=== PATIENT | male | born 1950 | race Caucasian/White ===

== ENCOUNTER 2018-04-09 08:30 | Outpatient (RCR) | payer MEDICARE, OTHER, SELFPAY | END 2018-04-09 09:30 | LOC: CAR 08:30 | PROVIDERS: PCP Family Medicine; Visit Provider Internal Medicine Cardiovascular Disease | DX: Z95.5 Presence of coronary angioplasty implant and graft (principal) | CPT/HCPCS: 93798 ==

== ENCOUNTER → 2018-08-20 11:54 | Outpatient (CLI) | payer MEDICARE, OTHER, SELFPAY ==
[2018-08-20 13:11] LABS: Cholesterol 147 mg/dL (140-199); HDL Cholesterol 53 mg/dL (40-60); LDL Cholesterol Calculated 77 mg/dL (<100); Triglycerides 85 mg/dL (35-150)
== END ==
PROVIDERS: PCP Family Medicine; Visit Provider Internal Medicine Cardiovascular Disease
DX: I25.10 Atherosclerotic heart disease of native coronary artery without angina pectoris (principal)
CPT/HCPCS: 36415; 80061

== ENCOUNTER → 2019-07-26 07:10 | Outpatient (CLI) | payer MEDICARE, OTHER, SELFPAY ==
[2019-07-26 09:10] LABS: Cholesterol 131 mg/dL (140-199); HDL Cholesterol 42 mg/dL (40-60); LDL Cholesterol Calculated 73 mg/dL (<100); Triglycerides 78 mg/dL (35-150)
== END ==
PROVIDERS: PCP Family Medicine; Visit Provider Registered Nurse
DX: I25.10 Atherosclerotic heart disease of native coronary artery without angina pectoris (principal)
CPT/HCPCS: 36415; 80061

== ENCOUNTER → 2019-10-21 12:38 | Outpatient (CLI) | payer MEDICARE, OTHER, SELFPAY ==
--- NOTE | 2019-10-21 | DI.MRI.S_ITS ---
PROCEDURE: MR HIP RT WO CON INDICATIONS: WEAKNESS AND BILATERAL HIP PAIN TECHNIQUE: Noncontrast coronal T1 spin echo and STIR through the bony pelvis. Coronal and axial T2 fast spin echo with fat saturation, sagittal T1 spin echo, and oblique axial T2 fast spin echo with fat saturation through the hip. COMPARISON: None. FINDINGS: Image quality: Excellent. Bones and joints: Mild to moderate right hip joint osteoarthritic changes are seen with joint space narrowing and subchondral sclerosis. No intraosseous lesions or fractures. No avascular necrosis of the femoral heads. The visualized lower lumbar spine appears normally aligned. Tendons and ligaments: Tendinosis involving distal right gluteus medius and minimus tendons at their insertion greater trochanter is seen without associated muscle atrophy. The nearby proximal iliotibial band also appears intact. The iliopsoas tendon appears intact, without adjacent bursal fluid collections or evidence for impingement syndrome. The origin of the hamstring tendon is intact at the ischial tuberosity, as well as the associated sacrotuberous ligament. The straight and reflected heads of the rectus femoris muscle origin appear intact, as well as the conjoint tendon. The ligamentum teres appears intact where visualized. Labrum and cartilage: There is suggestion of subtle superior anterior right hip labral tear in the absence of intra-articular contrast. Diffuse thinning of the articulating cartilages along surface of femoral head is seen. The alpha angle of the femur is within normal limits at less than 55 degrees. Soft tissues: Visualized muscles demonstrate normal bulk and internal signal. Quadratus femoris muscle demonstrates no internal edema to suggest ischiofemoral impingement. The proximal sciatic neurovascular bundle appears normal adjacent to the hamstring tendons. No free pelvic fluid. Bladder wall thickness is normal. Genitourinary structures and bowel loops appear normal where visualized. IMPRESSION: 1. Mild to moderate right hip joint osteoarthritis. No fracture or dislocation. No evidence of avascular necrosis of femoral head. 2. Findings suggestive of superior anterior right hip labral tear in the absence of intra-articular contrast. 3. Tendinosis involving distal right gluteus medius and minimus tendons at their insertion on greater trochanter. Dictated by: Xavier Sexton M.D. on 10/21/2019 at 15:04 Approved by: Xavier Sexton M.D. on 10/21/2019 at 15:11
--- NOTE | 2019-10-21 | DI.MRI.S_ITS ---
PROCEDURE: MR LUMBAR SPINE WO CON INDICATIONS: WEAKNESS AND BILATERAL HIP PAIN TECHNIQUE: Noncontrast sagittal T1 spin echo and T2 fast echo, sagittal STIR, axial T1 and T2 fast spin echo through the lumbar spine. In cases with scoliosis, additional coronal T2 fast spin echo may be performed. COMPARISON: None. FINDINGS: Image quality: Excellent. Alignment and Curvature: There is normal bony alignment. Bone Marrow: Marrow is of normal overall signal. No acute vertebral body compression fractures. Spinal Cord: Conus medullaris terminates at the T12-L1 level. Visualized cord demonstrates normal signal and size. Paraspinous Soft Tissues: No paravertebral masses. L1-L2: Decreased intervertebral disc space and degenerative endplate changes are seen. There is mild diffuse disc bulge and bilateral facet arthrosis. Mild central canal stenosis is seen, no significant neuroforaminal narrowing. L2-L3: Decreased intervertebral disc space and degenerative endplate changes are noted. A broad-based disc bulge and bilateral facet arthrosis is seen with mild to moderate central canal stenosis and mild left-sided neuroforaminal narrowing. L3-L4: Decreased intervertebral disc space and degenerative endplate changes are seen. There is broad-based disc bulge and bilateral facet arthrosis with hypertrophy of ligamentum flavum. Moderate central canal stenosis is seen. Moderate bilateral neuroforaminal narrowing is also noted. There is likely compression of bilateral exiting L3 nerve roots. L4-L5: Broad-based disc bulge and bilateral facet arthrosis is seen with hypertrophy of ligamentum flavum. There is moderate to severe central canal stenosis and bilateral neuroforaminal narrowing. Bulging disc likely contacting the bilateral exiting L4 nerve roots. L5-S1: Decreased intervertebral disc space and degenerative endplate changes are noted with diffuse disc bulge and bilateral facet arthrosis. There is mild central canal stenosis and mild to moderate bilateral neuroforaminal narrowing. IMPRESSION: 1. Degenerative disc bulge and bilateral facet arthrosis with hypertrophy of ligamenta flava and throughout lumbar spine with mild to moderate central canal stenosis and bilateral neuroforaminal narrowing more prominent at L3-4 and L4-5 levels as described in detail above. 2. There is no marrow edema. No acute compression fracture or spondylolisthesis. Dictated by: Xavier Sexton M.D. on 10/21/2019 at 14:59 Approved by: Xavier Sexton M.D. on 10/21/2019 at 15:04
--- NOTE | 2019-10-21 | DI.MRI.S_ITS ---
PROCEDURE: MR HIP LT WO CON INDICATIONS: WEAKNESS AND BILATERAL HIP PAIN TECHNIQUE: Noncontrast coronal T1 spin echo and STIR through the bony pelvis. Coronal and axial T2 fast spin echo with fat saturation, sagittal T1 spin echo, and oblique axial T2 fast spin echo with fat saturation through the hip. COMPARISON: [facility], MR, MR HIP RT WO CON, 10/21/2019, 13:23. FINDINGS: Image quality: Excellent. Bones and joints: Moderate left hip joint osteoarthritic changes are seen with joint space narrowing, extensive subchondral edema and cyst formation in left acetabular roof. No marrow edema. No intraosseous lesions or fractures. No avascular necrosis of the femoral heads. The visualized lower lumbar spine appears normally aligned. Tendons and ligaments: Mild tendinosis and low-grade partial-thickness tear involving left distal gluteus medius and minimus tendons at the insertion of greater trochanter., without associated muscle atrophy. The nearby proximal iliotibial band also appears intact. The iliopsoas tendon appears intact, without adjacent bursal fluid collections or evidence for impingement syndrome. The origin of the hamstring tendon is intact at the ischial tuberosity, as well as the associated sacrotuberous ligament. The straight and reflected heads of the rectus femoris muscle origin appear intact, as well as the conjoint tendon. The ligamentum teres appears intact where visualized. Labrum and cartilage: There is suggestion of extensive left hip superior and labral tear in the absence of intra-articular contrast. Diffuse thinning of articulating cartilage is along surface of femoral head is seen.. The alpha angle of the femur is within normal limits at less than 55 degrees. Soft tissues: Visualized muscles demonstrate normal bulk and internal signal. Quadratus femoris muscle demonstrates no internal edema to suggest ischiofemoral impingement. The proximal sciatic neurovascular bundle appears normal adjacent to the hamstring tendons. No free pelvic fluid. Bladder wall thickness is normal. Genitourinary structures and bowel loops appear normal where visualized. IMPRESSION: 1. Moderate left worse than right bilateral hip joint osteoarthritis. No fracture or dislocation. No evidence of avascular necrosis. 2. Tendinosis and low-grade partial-thickness tear involving left distal gluteus medius and minimus tendons at their insertion on greater trochanter. 3. Suggestion of extensive left hip superior and anterior labral tear. Dictated by: Xavier Sexton M.D. on 10/21/2019 at 15:11 Approved by: Xavier Sexton M.D. on 10/21/2019 at 15:16
== END ==
PROVIDERS: PCP Family Medicine; Visit Provider Family Medicine
DX: M25.552 Pain in left hip (principal); M25.551 Pain in right hip; R53.1 Weakness; M51.36 Other intervertebral disc degeneration, lumbar region; M51.37 Other intervertebral disc degeneration, lumbosacral region; M47.816 Spondylosis without myelopathy or radiculopathy, lumbar region; M47.817 Spondylosis without myelopathy or radiculopathy, lumbosacral region; M48.061 Spinal stenosis, lumbar region without neurogenic claudication; M48.07 Spinal stenosis, lumbosacral region; M16.0 Bilateral primary osteoarthritis of hip; M67.88 Other specified disorders of synovium and tendon, other site
CPT/HCPCS: 72148; 73721

== ENCOUNTER → 2019-11-30 12:10 | Outpatient (CLI) | payer MEDICARE, OTHER, SELFPAY ==
--- NOTE | 2019-11-30 | DI.RAD.S_ITS ---
PROCEDURE: XR KNEE RT 3V INDICATIONS: RIGHT KNEE PAIN TECHNIQUE: 3 views of the knee were acquired. COMPARISON: None. FINDINGS: Bones: No fractures or dislocations. No suspicious bony lesions. Mild degenerative joint disease with small periarticular osteophytes. Soft tissues: No joint effusion. There is an irregular ossicle in the inferior knee, either secondary to ossification of the patellar tendon or an intra-articular body. IMPRESSION: 1. Mild degenerative joint disease. 2. An irregular ossicle in the inferior knee, either secondary to ossification of the patellar tendon or an intra-articular body. Dictated by: Margareth Melendez M.D. on 11/30/2019 at 14:15 Approved by: Margareth Melendez M.D. on 11/30/2019 at 14:19
== END ==
PROVIDERS: PCP Family Medicine; Visit Provider Family Medicine
DX: M25.561 Pain in right knee (principal); M17.11 Unilateral primary osteoarthritis, right knee
CPT/HCPCS: 73562

== ENCOUNTER → 2021-02-21 12:20 | Outpatient (CLI) | payer MEDICARE, OTHER, SELFPAY ==
--- NOTE | 2021-02-21 12:24 | DI.RAD.S_ITS ---
PROCEDURE: XR CHEST 2V INDICATIONS: cough TECHNIQUE: 2 views of the chest were acquired. COMPARISON: [facility], CHEST 1 VIEW, 06/25/2017, 10:19. [facility], CHEST 2 VIEW, 04/18/2017, 14:06. FINDINGS: Surgical changes and devices: None. Lungs and pleura: Lungs are clear. No pleural effusions or pneumothorax. Mediastinum: Mediastinal contours are normal. Heart size is normal. Bones and chest wall: No suspicious bony abnormalities. Soft tissues appear unremarkable. IMPRESSION: Normal for age, source of current cough symptoms is not seen. Dictated by: Brian Newman M.D. on 02/21/2021 at 12:43 Approved by: Brian Newman M.D. on 02/21/2021 at 12:43
[2021-02-21 12:54] LABS: Troponin I < 0.012 ng/mL (0.01-0.034)
== END ==
PROVIDERS: PCP Family Medicine; Referring Provider Student in an Organized Health Care Education/Training Program; Visit Provider Student in an Organized Health Care Education/Training Program
DX: R05 Cough (principal)
CPT/HCPCS: 71046; 84484

== ENCOUNTER → 2021-03-13 10:51 | Outpatient (CLI) | payer MEDICARE, OTHER, SELFPAY ==
[2021-03-13 12:01] LABS: COVID19 -Nasal RAPID Negative (Negative)
== END ==
PROVIDERS: PCP Family Medicine; Referring Provider Internal Medicine; Visit Provider Internal Medicine
DX: Z20.822 Contact with and (suspected) exposure to COVID-19 (principal)
CPT/HCPCS: 87635; C9803

== ENCOUNTER → 2021-03-14 11:00 | Outpatient (CLI) | payer MEDICARE, OTHER, SELFPAY ==
--- NOTE | 2021-03-15 16:18 | PM.PFT.1 ---
Pulmonary Function Test Referral & Results Date Patient Seen: 03/14/21 Requesting provider: Sammy Bell Results: The spirometry demonstrates an FVC of 3.68 L which is 84% of predicted. The FEV1 was measured at 2.90 L which is 91% of predicted. The FEV1/FVC ratio was 79 which is 107% of predicted. Following the administration of bronchodilator there was an 18% improvement in FEF 25-75%. Lung volumes show an SVC of 4.56 L which is 100% of predicted. The diffusing capacity was measured at 19.87 which is 61% of predicted. No hemoglobin value was provided, so no correction for potential anemia could be made, if appropriate. The maximum voluntary ventilation was normal Interpretation: This study demonstrates probably normal spirometry although there is an improvement in small airway flow post bronchodilator based on the improved FEF 25-75% as above There is a mild reduction in diffusing capacity (unless patient is anemic) suggesting element of disease the capillary alveolar level Clinical correlation suggested
== END ==
PROVIDERS: PCP Family Medicine; Referring Provider Family Medicine; Visit Provider Family Medicine
DX: R07.89 Other chest pain (principal); R05 Cough
CPT/HCPCS: 94060; 94726; 94729

== ENCOUNTER 2024-07-31 22:12 | Emergency (ER) | payer MEDICARE, OTHER, SELFPAY ==
[2024-07-31] VITALS (7 sets, daily range): BP systolic 122–184; BP diastolic 60–82; PULSE 52–94; RESP 18–27; TEMP 36.7; O2SAT 95–98; BMI 25.8
--- NOTE | 2024-07-31 22:21 | DI.RAD.S_ITS ---
PROCEDURE: XR CHEST 1V INDICATIONS: Chest pain TECHNIQUE: One view of the chest was acquired. COMPARISON: [facility], CR, XR CHEST 2V, 02/21/2021, 12:26. FINDINGS: Surgical changes and devices: None. Lungs and pleura: There is mild pulmonary vascular congestion. No definite focal infiltrate.. No pleural effusions or pneumothorax. Mediastinum: Mediastinal contours appear normal. Heart size is normal. Bones and chest wall: No suspicious bony lesions. Overlying soft tissues appear unremarkable. IMPRESSION: Mild congestion. No definite focal infiltrate. No pleural effusion or pneumothorax. Dictated by: Xavier Sexton M.D. on 07/31/2024 at 22:52 Approved by: Xavier Sexton M.D. on 07/31/2024 at 22:53
--- NOTE | 2024-07-31 22:27 | EKG_ITS ---
[place] [address] [place] [id number] Test Date: 2024-07-31 Pat Name: Phil Alcaraz Department: [facility] Room: Gender: Male Oral Therapist: BAMBI : 1950 Requested By: Order Number: [id number] Reading MD: Heber Norwood Measurements Intervals [place] Rate: 90 P: 64 DC: 154 QRS: 23 QRSD: 86 T: 46 QT: 390 QTc: 477 Interpretive Statements Sinus rhythm with frequent premature ventricular complexes in a pattern of bigeminy Possible Left atrial enlargement Electronically Signed On 08-01-2024 7:17:26 PDT by Heber Norwood
[2024-07-31 22:44] LABS: Add Manual Diff / Slide Review NO; Basophils Absolute Auto 0 /uL (0-100); Basophils Percent Auto 0.8 % (0-2); Eosinophils Absolute Auto 100 /uL (0-450); Eosinophils Percent Auto 3.5 % (2-4); Hematocrit 35.6 % (41-53); Hemoglobin 12.2 g/dL (13.5-17.5); Lymphocytes Absolute Auto 1500 /uL (1100-4500); Mean Corpuscular HGB Conc 34.3 % (30-36); Mean Corpuscular Volume 99.1 fL (80-100); Monocytes Absolute Auto 200 /uL (0-900); Monocytes Percent Auto 7.4 % (3-14); Neutrophils Absolute Auto 1400 /uL (1500-7000); Neutrophils Percent Auto 42.3 % (50-75); Platelet Count 184 X10^3/uL (150-400); Red Blood Cell Count 3.59 X10^6/uL (4.5-5.9); Red Cell Distribution Width 12.2 % (11.6-14.8); White Blood Cell Count 3.2 X10^3/uL (4.5-11.0)
[2024-07-31 23:00] LABS: Alanine Aminotransferase 21 IU/L (<50); Albumin Globulin Ratio 1.3 (1.0-2.8); Alkaline Phosphatase 71 U/L (38-126); Aspartate Aminotransferase 23 IU/L (17-59); BUN Creatinine Ratio 47.8 (6-22); Bilirubin Total 1.5 mg/dL (0.2-1.3); Blood Urea Nitrogen 32 mg/dL (9-20); Calcium 9.4 mg/dL (8.4-10.2); Carbon Dioxide 24 mmol/L (22-32); Chloride 108 mmol/L (98-107); Creatine Kinase 102 U/L (55-170); Estimated Glomerular Filt Rate > 60 mL/min (>60); Globulin 3.2 g/dL (1.7-4.1); Glucose 126 mg/dL (80-110); HEMOLYSIS < 15 (0-50); Lipase 65 U/L (23-300); Sodium 138 mmol/L (137-145); Total Protein 7.2 g/dL (6.3-8.2)
[2024-07-31 23:01] LABS: Magnesium 1.9 mg/dL (1.6-2.3)
[2024-07-31 23:12] LABS: Troponin I < 0.012 ng/mL (0.01-0.034)
--- NOTE | 2024-07-31 23:41 | ED_ITS ---
HPI - Chest Pain General Chief Complaint: Chest Pain Stated Complaint: low heart rate, chest pain, t-3 Time Seen by Provider: 07/31/24 22:20 Source: patient Mode of arrival: Ambulatory Limitations: no limitations History of Present Illness HPI narrative: Patient is a 74-year-old male who presents emergency department this evening for a low heart rate and also chest discomfort. He states his chest discomfort has been present for the past several weeks. He states that it only occurs when he takes a deep breath. Initially thought that it was something muscular. It is not worse with palpation or movement. He denies any fevers. No cough. States the pain is not persistent but only when he takes a deep breath. He was not short of breath when he was walking around. He also states that his heart rate has been low. He was not on any blood pressure medications. Nothing that would bring his heart rate low. He states he had a medical appointment recently and was told that his heart rate was in the 40s. He was feeling at his baseline state of health. He happened to put on a pulse ox that he had at home which showed his heart rate again in the 40s. He was not been lightheaded with standing nor short of breath with exertion. Given the chest discomfort in the low heart rate decided to come to the emergency department for further evaluation. Related Data Home Medications Medication Instructions Recorded Confirmed aspirin 81 mg tablet,delayed 81 mg PO QDAY ##0 06/25/17 release atorvastatin 80 mg tablet (Lipitor) 80 mg PO HS ##0 06/25/17 clopidogrel 75 mg tablet (Plavix) 75 mg PO QDAY ##0 06/25/17 metoprolol succinate 25 mg 12.5 mg PO QPM ##0 06/25/17 tablet,extended release 24 hr (Toprol XL) nitroglycerin 0.4 mg sublingual 0.4 mg sublingual PRN PRN ##0 06/25/17 tablet (Nitrostat) ranitidine HCl 150 mg tablet 150 mg PO BID ##0 06/25/17 (Zantac) Previous Rx's Medication Instructions Recorded apixaban 5 mg tablet (Eliquis) 5 mg PO BID 28 days ##0 06/25/17 Allergies Allergy/AdvReac Type Severity Reaction Status Date / Time cortisone [CORTISONE] Allergy Unknown Unverified 02/25/18 13:06 Review of Systems Review of Systems ROS Unobtainable: All systems reviewed & are unremarkable except as noted in HPI and below Patient History Social History Smoking Status: Never smoker Smoking Status: Never smoker alcohol intake frequency: holidays/special occasions only Substance Use Type: does not use Exam Initial Vital Signs Initial Vital Signs: Vital Signs Pulse Rate 94 H 07/31/24 22:18 Respiratory Rate 20 07/31/24 22:18 Blood Pressure 184/82 H 07/31/24 22:18 Pulse Oximetry 97 07/31/24 22:18 Const General: cooperative, comfortable and No ill appearing HENMT Head: normal to inspection and normocephalic Resp Effort & Inspection: normal respiratory effort Auscultation: clear to auscultation bilaterally Cardio Rate: regular rate Rhythm: regular rhythm GI Inspection: normal to inspection Skin General: no rashes or lesions noted Neuro General: patient alert, patient awake, patient oriented x3 and moves all extremities Extrem General: normal to inspection and capillary refill normal Course Orders Ordered: ED Orders 07/31/24 22:21 XR chest 1V Stat EKG-12 Lead Stat 07/31/24 22:23 Complete Blood Count AUTO DIFF Stat Comprehensive Metabolic Panel Stat Lipase Stat Magnesium Stat Troponin & CK Cardiac Panel Stat 08/01/24 00:26 Troponin & CK Cardiac Panel Stat Vital Signs Vital signs: Vital Signs - 8 hr 07/31/24 22:18 07/31/24 22:18 07/31/24 22:19 Temperature 98.1 F Pulse Rate 94 H 52 L Respiratory Rate 20 18 Blood Pressure 184/82 H 184/82 H Pulse Oximetry 97 97 Oxygen Delivery Method Room Air 07/31/24 22:30 07/31/24 22:31 07/31/24 22:31 Temperature Pulse Rate 93 H 91 H Respiratory Rate 20 27 H Blood Pressure 129/60 Pulse Oximetry 97 98 Oxygen Delivery Method 07/31/24 23:00 07/31/24 23:00 07/31/24 23:30 Temperature Pulse Rate 83 91 H Respiratory Rate 18 21 Blood Pressure 122/72 Pulse Oximetry 97 95 Oxygen Delivery Method 07/31/24 23:31 07/31/24 23:31 08/01/24 00:01 Temperature Pulse Rate 85 101 H Respiratory Rate 26 H 23 Blood Pressure 160/73 H Pulse Oximetry 96 97 Oxygen Delivery Method 08/01/24 00:01 08/01/24 00:30 08/01/24 00:30 Temperature Pulse Rate 74 Respiratory Rate 15 Blood Pressure 116/57 L 135/65 Pulse Oximetry 96 Oxygen Delivery Method 08/01/24 01:00 08/01/24 01:01 08/01/24 01:01 Temperature Pulse Rate 83 81 Respiratory Rate 21 17 Blood Pressure 152/73 H Pulse Oximetry 99 Oxygen Delivery Method MDM - Chest Pain Lab Data Attestation: I reviewed the patient's lab results. 07/31/24 22:23 07/31/24 22:23 Labs: Lab Results 07/31/24 08/01/24 Range/Units 22:23 00:26 WBC 3.2 L (4.5-11.0) X10^3/uL RBC 3.59 L (4.5-5.9) X10^6/uL Hgb 12.2 L (13.5-17.5) g/dL Hct 35.6 L (41-53) % MCV 99.1 (80-100) fL MCH 34.0 (26-34) PG MCHC 34.3 (30-36) % RDW 12.2 (11.6-14.8) % Plt Count 184 (150-400) X10^3/uL Neut % (Auto) 42.3 L (50-75) % Lymph % (Auto) 46.0 H (25-40) % Gregg % (Auto) 7.4 (3-14) % Eos % (Auto) 3.5 (2-4) % Baso % (Auto) 0.8 (0-2) % Neut # (Auto) 1400 L (0437-9288) /uL Lymph # (Auto) 1500 (7645-4226) /uL Gregg # (Auto) 200 (0-900) /uL Eos # (Auto) 100 (0-450) /uL Baso # (Auto) 0 (0-100) /uL Sodium 138 (137-145) mmol/L Potassium 4.0 (3.4-5.1) mmol/L Chloride 108 H (98-107) mmol/L Carbon Dioxide 24 (22-32) mmol/L BUN 32 H (9-20) mg/dL Creatinine 0.67 (0.66-1.25) mg/dL Estimated GFR > 60 (>60) mL/min BUN/Creatinine Ratio 47.8 H (6-22) Glucose 126 H (80-110) mg/dL Calcium 9.4 (8.4-10.2) mg/dL Magnesium 1.9 (1.6-2.3) mg/dL Total Bilirubin 1.5 H (0.2-1.3) mg/dL AST 23 (17-59) IU/L ALT 21 (<50) IU/L Alkaline Phosphatase 71 (38-126) U/L Total Creatine Kinase 102 85 (55-170) U/L Troponin I < 0.012 < 0.012 (0.01-0.034) ng/mL Total Protein 7.2 (6.3-8.2) g/dL Albumin 4.0 (3.5-5.0) g/dL Globulin 3.2 (1.7-4.1) g/dL Albumin/Globulin Ratio 1.3 (1.0-2.8) Lipase 65 (23-300) U/L Imaging Data Chest x-ray: Radiologist's Impression: PROCEDURE: XR CHEST 1V INDICATIONS: Chest pain TECHNIQUE: One view of the chest was acquired. COMPARISON: [facility], , XR CHEST 2V, 02/21/2021, 12:26. FINDINGS: Surgical changes and devices: None. Lungs and pleura: There is mild pulmonary vascular congestion. No definite focal infiltrate.. No pleural effusions or pneumothorax. Mediastinum: Mediastinal contours appear normal. Heart size is normal. Bones and chest wall: No suspicious bony lesions. Overlying soft tissues appear unremarkable. IMPRESSION: Mild congestion. No definite focal infiltrate. No pleural effusion or pneumothorax. ECG Data Attestation: I personally reviewed and interpreted this ECG as follows: Interpretation: Sinus rhythm Frequent PVCs in a bigeminy pattern Ventricular rate of [address] T wave changes MDM Narrative Medical decision making narrative: Patient was having frequent PVCs in a bigeminy pattern which is what I anticipate is what his pulse ox is reading as bradycardia. He was asymptomatic from this. Chest x-ray shows no signs of pneumonia. Afebrile. Troponins are negative x2. Nonischemic EKG. Low suspicion for ACS. Recommended that the patient contact his truck greaser to discuss further workup as he may need another Holter monitor. He does have a history of AFib but is not in AFib today. He was given return precautions and follow-up instructions. He expressed understanding and agreement. Discharge Plan Departure Patient Disposition: Home Clinical Impression: Bigeminy Activity Restrictions/Additional Instructions: Continue to take all of your medications as directed. I do recommend that you contact your truck greaser for a follow-up. Return to the emergency department for new or worsening symptoms. Prescriptions: No Action clopidogrel [Plavix] 75 MG tablet 75 mg PO QDAY Qty: 0 atorvastatin [Lipitor] 80 MG tablet 80 mg PO HS Qty: 0 aspirin 81 MG tablet,delayed release (DR/EC) 81 mg PO QDAY Qty: 0 metoprolol succinate [Toprol XL] 25 MG tablet extended release 24 hr 12.5 mg PO QPM Qty: 0 ranitidine HCl [Zantac] 150 MG tablet 150 mg PO BID Qty: 0 nitroglycerin [Nitrostat] 0.4 MG tablet, sublingual 0.4 mg Sublingual PRN PRNQty: 0 apixaban [Eliquis] 5 MG tablet 5 mg PO BID 28 Days Qty: 0 0RF Referrals: Sammy Bell MD [Primary Care Provider] - Stand Alone Forms: Patient Portal/API
[2024-08-01 00:01] VITALS: BP 116/57; PULSE 101; RESP 23; O2SAT 97
[2024-08-01 00:30] VITALS: BP 135/65; PULSE 74; RESP 15; O2SAT 96
[2024-08-01 00:51] LABS: Creatine Kinase 85 U/L (55-170)
[2024-08-01 01:00] VITALS: PULSE 83; RESP 21
[2024-08-01 01:01] VITALS: BP 152/73; PULSE 81; RESP 17; O2SAT 99
[2024-08-01 01:04] LABS: Troponin I < 0.012 ng/mL (0.01-0.034)
[2024-08-01 01:30] VITALS: BP 142/69; PULSE 85; RESP 17
== END 2024-08-01 01:46 | disposition home or self-care (01) ==
PROVIDERS: Emergency Provider Emergency Medicine; PCP Family Medicine
DX: I49.8 Other specified cardiac arrhythmias (principal); R00.1 Bradycardia, unspecified; R07.9 Chest pain, unspecified; Z79.01 Long term (current) use of anticoagulants
CPT/HCPCS: 36415; 71045; 80053; 82550; 83690; 83735; 84484; 85025; 93005; 99284